=== PATIENT | female | born 1995 ===

== ENCOUNTER 2019-11-17 16:59 | Emergency (ER) | payer BC ==
--- NOTE | 2019-11-17 17:27 | UC ---
Headache HPI - HPI Summary HPI Summary: 24 yo female presents with headache. She tells me that she has a history of migraines for which she takes maxalt for acute headaches and trazodone for chronic treatment. Yesterday morning she developed a headache to the occipital/ ociput area of her head that felt the same as her usual migraines. She took her maxalt and felt moderately better, but headache never fully went away. She took ibuprofen, which helped but did not resolve headache. She went to bed last night and headache was still mildly present this morning - prompting her visit to today. She has not taken any medication for her headache today. LMP was and she takes an OBC, but has been sexually active without protection and would like a test today. She denies recent illness, neck pain, vision changes, dizziness, sinus symptoms , cough, SOB, chest pain, abdominal pain, n/v/d/c, dysuria, back pain. - History Of Current Complaint Stated Complaint: HEADACHE Time Seen by Provider: 11/17/19 17:26 Hx Obtained From: Patient Onset/Duration: Gradual Onset Initially Headache Was: Moderate Currently Pain Is: Moderate Pain Intensity: 5 Pain Scale Used: 0-10 Numeric - Allergies/Home Medications Allergies/Adverse Reactions: Allergies Allergy/AdvReac Type Severity Reaction Status Date / Time Cephalosporins Allergy Severe Hives Verified 11/17/19 18:13 Penicillins Allergy Severe facial Verified 11/17/19 18:13 swelling Home Medications: Home Medications Ethinyl Estradiol/Drospirenone [Alena 28 Tablet] 1 tab PO DAILY 11/17/19 [History Confirmed 11/17/19] FLUoxetine CAP* [Prozac CAP*] 30 mg PO DAILY 11/17/19 [History Confirmed ] Levocetirizine Dihydrochloride [Xyzal Allergy 24Hr] 5 mg PO DAILY 11/17/19 [ History Confirmed 11/17/19] Montelukast Sodium TAB* [Singulair 10 MG TAB*] 1 tab PO DAILY 11/17/19 [History Confirmed 11/17/19] traZODone TAB* [Desyrel TAB*] 25 mg PO DAILY 11/17/19 [History Confirmed ] PMH/Surg Hx/FS Hx/Imm Hx - Additional Past Medical History Additional PMH: Migraines Allergies Psychological History: Anxiety, Depression - Surgical History Surgical History: None - Family History Known Family History: Positive: None - Social History Occupation: Student Alcohol Use: Occasionally Substance Use Type: None Smoking Status (MU): Never Smoked Tobacco Review of Systems All Other Systems Reviewed And Are Negative: No Constitutional: Positive: Negative Skin: Positive: Negative Eyes: Positive: Negative ENT: Positive: Negative Respiratory: Positive: Negative Cardiovascular: Positive: Negative Gastrointestinal: Positive: Negative Genitourinary: Positive: Negative Motor: Positive: Negative Neurovascular: Positive: Negative Musculoskeletal: Positive: Negative Neurological/Mental Status: Positive: Headache Psychological: Positive: Negative Physical Exam - Summary Physical Exam Summary: GENERAL: NAD. WDWN. No pain distress. SKIN: No rashes, sores, ulcers, masses, lesions. HEENT: Head: AT/NC. Eyes: PERRLA. EOM intact. Conjunctiva clear without inflammation or discharge. Ears: Hearing grossly normal. TMs intact, no bulging, erythema, or edema. Nose: Nasal mucosa pink and moist. NTTP maxillary and frontal sinus. Throat: Posterior oropharynx without exudates, erythema, or tonsillar enlargement. Uvula midline. NECK: Supple. Nontender. FROM CHEST: CTAB. No r/r/w. No accessory muscle use. Breathing comfortably and in no distress. CV: RRR. Pulses intact. Brisk cap refill. MSK: FROM in B/L UEs and LEs with symmetric strength. NEURO: A&Ox3. Ability to follow 2-step directions and attention intact. CN: II: Peripheral wetzel intact. Vision normal. III, IV, : EOMI. No nystagmus. PERRLA. V: Sensations intact and symmetric. Opens mouth and clenches teeth. VII : No facial asymmetry. Forehead wrinkles. Grins, shuts eyes, frowns, puffs cheeks. VIII: Hearing intact to finger rub. IX, X: Swallows and coughs. Uvula midline. XI: Shrugs shoulders. Turns head against resistance. XII: No tongue deviation [id number] are intact. Gait with normal base. Romberg: maintains balance, no pronator drift. Normal speech. No facial drooping. PSYCH: Age appropriate behavior. Triage Information Reviewed: Yes Vital Signs: Vital Signs: Temp Pulse Resp BP Pulse Ox 99.0 F 93 15 97/61 99 11/17/19 17:51 11/17/19 17:51 11/17/19 17:51 11/17/19 17:51 11/17/19 17:51 Laboratory Tests 11/17/19 11/17/19 18:06 18:07 POC Urine Color Yellow POC Urine Clarity Clear POC Urine pH 6.0 POC Ur Specif Neal 1.025 POC Urine Protein Negative POC Ur Glucose (UA) Negative POC Urine Ketones Trace A POC Urine Blood Trace-intact A POC Urine Nitrite Negative POC Urine Bilirubin Negative POC Urine Urobilinogen 0.2 POC U Leukocyte Esteras Negative POC Ur Test Negative Vital Signs Reviewed: Yes Headache Course/Dx - Course Course Of Treatment: UA as above. Urine negative. In the clinic she was given 30mg toradol IM and 4mg odt zofran for her headache. -- resume tylenol this evening as directed, rest, and drink plenty of clear fluids. Advised to try excedrin migraine tomorrow if her headache persists. If headache does not continue to improve, worsens, or if she develops new symptoms to be rechecked - Differential Dx/Diagnosis Provider Diagnosis: Headache Discharge ED - Sign-Out/Discharge Documenting (check all that apply): Patient Departure All imaging exams completed and their final reports reviewed: No Studies - Discharge Plan Condition: Stable Disposition: HOME Patient Education Materials: Migraine Headache (ED) Referrals: Samantha Blancas MD [Primary Care Provider] - Additional Instructions: If you develop a fever, dizziness, worsening headache, vision changes, numbness/ weakness, shortness of breath, chest pain, new or worsening symptoms - please call your PCP or go to the ED immediately. In the future you may try some Excedrin Migraine (over the counter) for your headaches if your usual medications do not work - Billing Disposition and Condition Condition: STABLE Disposition: Home - Attestation Statements Provider Attestation: I was available for consult. This patient was seen by the ROB. The patient was not presented to, seen by, or examined by me. -Ilana
--- OUTSIDE RECORDS SUMMARY | 2019-11-17 17:29 | XMS REPORT | Continuity of Care Document ---
:1995 External Reference #:[id number] Author Name Samantha Oliver MD (transmitted by agent of provider Chioma Diaz) Address [address], [place] [address] Care Team Providers Name Role Phone Samantha Oliver MD - Family Medicine Care Team Information Director Credit Risk Problems Active Problems Provider Date Migraine with aura Onset: 10/12/2017 Seasonal allergic rhinitis Onset: 10/12/2017 Mild intermittent asthma Onset: 10/12/2017 Acute vaginitis Onset: 10/12/2017 Acne Onset: 10/12/2017 H/O: depression Onset: 10/12/2017 Community acquired pneumonia Onset: 04/11/2016 History of herpes zoster Onset: 08/03/2012 Social History Type Date Description Comments Sex Unknown Tobacco Use Start: Unknown Never Smoked Cigarettes Smoking Status Reviewed: 10/04/19 Never Smoked Cigarettes ETOH Use Drinks Alcoholic Beverages Occasionally ETOH Use Drinks 2 Alcoholic Beverages Per Week Recreational Drug Use Never Used Drugs Exercise Type/Frequency Exercises regularly Allergies, Adverse Reactions, Alerts Active Allergies Reaction Severity Comments Date Cefdinir Rash Moderate 08/03/2019 Penicillin Facial swelling Severe 08/03/2019 Medications Active Medications SIG Qnty Indications Ordering Date Provider Alprazolam 1 po qd prn 30tabs F41.8 Samantha Oliver MD 08/31/2019 0.25mg Tablets anxiety Dispers Loryna 1 by mouth Unknown 3-0.02mg Tablets every day Levocetirizine 1 every day as Unknown Dihydrochloride needed 5mg Tablets Multi Adult Gummies 2 by mouth Unknown Chewtabs every day Montelukast Sodium 1 by mouth Unknown 10mg every day Tablets Propranolol HCL 1 po prn qd 30tabs Samantha Oliver MD 10mg Tablets Proventil HFA 2 puffs every 4 Unknown 108(90Base) hours as needed mcg/Act Aerosol Rizatriptan Benzoate 1 by mouth at Unknown 5mg onset of Tablets migraine, may repeat after 2 hours max 2/day max 2 days/week Trazodone HCL 1 by mouth Unknown 50mg Tablets every day at hs prn Fluoxetine HCL (PMDD) 1 by mouth Unknown 20mg every day plus Capsules 10mg Medications Administered in Office Medication SIG Qnty Indications Ordering Provider Date Meningococcal,Unspecified Unknown 07/22/2014 Injection HPV,Unspecified Unknown 02/20/2012 Injection HPV,Unspecified Unknown 08/16/2011 Injection HPV,Unspecified Unknown 08/04/2010 Injection Meningococcal,Unspecified Unknown 03/01/2009 Injection Immunizations CPT Code Status Date Vaccine Lot # [id number] Given 05/09/2019 Influenza Virus Vaccine, Quadrivalent, Split, Im Use 6-35mo 36252 Given 01/19/2019 Tdap - Tetanus/Diptheria/Acellular Pertussis 38521 Given 04/08/2018 Influenza Virus Vaccine, Quadrivalent, Split, Preservative Free 79143 Given 06/13/2017 Influenza Virus Vaccine, Quadrivalent, Split, Im Use 6-35mo 87213 Given 04/27/2015 Flu Vaccine 88712 Given 08/01/2014 Flu Vaccine 96298 Given 05/07/2013 Flu Vaccine 21576 Given 07/01/2012 Flu Vaccine 98505 Given 05/14/2012 Flu Vaccine 65382 Given 06/14/2011 Flu Vaccine 88411 Given 06/28/2010 Flu Vaccine 72022 Given 06/12/2009 Flu Vaccine 14502 Given 04/03/2009 Flu Vaccine 25023 Given 03/05/2009 Varicella (Chicken Pox) Immunization 78220 Given 03/01/2009 Tdap - Tetanus/Diptheria/Acellular Pertussis 45541 Given 04/20/2008 Flu Vaccine 17665 Given 02/16/2003 Hepatitis A Vaccine Pediatric/Adolescent Dosage 2 Dose Schedule 46057 Given 08/23/2002 Hepatitis A Vaccine Pediatric/Adolescent Dosage 2 Dose Schedule 21908 Given 06/21/2001 DTP Vaccine 63068 Given 06/15/2001 IPV/Poliomyelitis Immunization 11176 Given 06/15/2001 Measles Mumps And Rubella MMR 70252 Given 12/07/1998 DTP Vaccine 00290 Given 09/07/1998 Hemophilus Influenza B 85042 Given 08/08/1998 DTP Vaccine 51993 Given 06/15/1998 Measles Mumps And Rubella MMR 07488 Given 06/15/1998 Varicella (Chicken Pox) Immunization 10487 Given 03/09/1998 Hep B Pediatric/Adolescent 62601 Given 1997 Hemophilus Influenza B 83645 Given 1997 DTP Vaccine 48279 Given 1997 Hemophilus Influenza B 62927 Given 1997 DTP Vaccine 46261 Given 1997 Hep B Pediatric/Adolescent 04798 Given 1997 [place] Influenza B [address]85 Given 1997 Hep B Pediatric/Adolescent Vital Signs Date Vital Result Comment 10/04/2019 10:33am Height 61.5 inches 5'1.50" Weight 111.00 lb Heart Rate 90 /min BP Systolic 90 mmHg BP Diastolic 62 mmHg Respiratory Rate 16 /min Body Temperature 97.9 F BMI (Body Mass Index) 20.6 kg/m2 09/13/2019 10:38am Height 61.5 inches 5'1.50" Weight 111.25 lb Heart Rate 69 /min BP Systolic 93 mmHg BP Diastolic 63 mmHg Body Temperature 97.8 F O2 % BldC Oximetry 97 % BMI (Body Mass Index) 20.7 kg/m2 Last Menstrual Period 2292155 Results Test Acquired Date Facility Test Result H/L Range Note Cobalamin 06/13/2019 N2N/CCD Import vitamin B12 421 pg/mL 180-914 (Vitamin B12) [Mass/volume] in Blood TSH (thyroid 06/13/2019 N2N/CCD Import TSH (thyroid 1.63 0.34-5.60 stimulating stimulating mciu/mL horm) horm) Procedures Description No Information Available Medical Devices Description No Information Available Encounters Type Date Location Provider Dx Diagnosis Office Visit 10/04/2019 [facility] Samantha Oliver MD F41.8 Other specified 10:30a [facility] anxiety disorders 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 Office Visit 09/13/2019 10:30a [facility] Samantha Oliver MD F41.8 Other specified [facility] anxiety disorders Office Visit 08/31/2019 4:00p [facility] Samantha Oliver MD F41.8 Other specified [facility] anxiety disorders 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 J45.20 Mild intermittent asthma, uncomplicated Assessments Date Code Description Provider 10/04/2019 F41.8 Mixed anxiety and depressive disorder Samantha Oliver MD 10/04/2019 F40.248 Performance anxiety Samantha Oliver MD 09/13/2019 F41.8 Mixed anxiety and depressive disorder Samantha Oliver MD 08/31/2019 F41.8 Mixed anxiety and depressive disorder Samantha Oliver MD 08/31/2019 F40.248 Performance anxiety Samantha Oliver MD 08/31/2019 J45.20 Mild intermittent asthma Samantha Oliver MD Plan of Treatment Future Appointment(s):10/24/2019 10:30 am - Samantha Oliver MD at [facility]10/04/2019 - Samantha Oliver MDF41.8 Mixed anxiety and depressive disorderComments:Feels better, less anxiety, less overwhelmed. Still with anxiety related to certain events. Working with therapist, meditating, taking meds correctly, exercising. Will refill alprazolam, she is using it as needed and appropriately.Follow up:2 months follow upF40.248 Performance anxiety Functional Status Description No Information Available Mental Status Description No Information Available Referrals Description No Information Available
--- OUTSIDE RECORDS SUMMARY | 2019-11-17 17:29 | XMS REPORT | Continuity of Care Document ---
:1995 External Reference #:[id number] Author Name Samantha Oliver MD (transmitted by agent of provider November) Address [address] , [place] [address] Care Team Providers Name Role Phone Samantha Oliver MD - Family Medicine Care Team Information Hospital Administrative Assistant Problems Active Problems Provider Date Migraine with aura Onset: 10/12/2017 Seasonal allergic rhinitis Onset: 10/12/2017 Mild intermittent asthma Onset: 10/12/2017 Acute vaginitis Onset: 10/12/2017 Acne Onset: 10/12/2017 H/O: depression Onset: 10/12/2017 Community acquired pneumonia Onset: 04/11/2016 History of herpes zoster Onset: 08/03/2012 Social History Type Date Description Comments Sex Unknown Tobacco Use Start: Unknown Never Smoked Cigarettes ETOH Use Drinks Alcoholic Beverages Occasionally ETOH Use Drinks 2 Alcoholic Beverages Per Week Recreational Drug Use Never Used Drugs Tobacco Use Start: Unknown Patient has never smoked Smoking Status Reviewed: 10/04/19 Patient has never smoked Exercise Type/Frequency Exercises regularly Allergies, Adverse Reactions, [...] CPT Code Status Date Vaccine Lot # [id number] Given 05/09/2019 Influenza Virus Vaccine, Quadrivalent, Split, Im Use 6-35mo 33820 Given 01/19/2019 Tdap - Tetanus/Diptheria/Acellular Pertussis 57728 Given 04/08/2018 Influenza Virus Vaccine, Quadrivalent, Split, Preservative Free 06715 Given 06/13/2017 Influenza Virus Vaccine, Quadrivalent, Split, Im Use 6-35mo 13506 Given 04/27/2015 Flu Vaccine 39843 Given 08/01/2014 Flu Vaccine 24467 Given 05/07/2013 Flu Vaccine 28729 Given 07/01/2012 Flu Vaccine 00863 Given 05/14/2012 Flu Vaccine 46877 Given 06/14/2011 Flu Vaccine 08512 Given 06/28/2010 Flu Vaccine 87728 Given 06/12/2009 Flu Vaccine 92255 Given 04/03/2009 Flu Vaccine 37268 Given 03/05/2009 Varicella (Chicken Pox) Immunization 90296 Given 03/01/2009 Tdap - Tetanus/Diptheria/Acellular Pertussis 56995 Given 04/20/2008 Flu Vaccine 24246 Given 02/16/2003 Hepatitis A Vaccine Pediatric/Adolescent Dosage 2 Dose Schedule 42510 Given 08/23/2002 Hepatitis A Vaccine Pediatric/Adolescent Dosage 2 Dose Schedule 07178 Given 06/21/2001 DTP Vaccine 29429 Given 06/15/2001 IPV/Poliomyelitis Immunization 18750 Given 06/15/2001 Measles Mumps And Rubella MMR 08086 Given 12/07/1998 DTP Vaccine 01734 Given 09/07/1998 Hemophilus Influenza B 41865 Given 08/08/1998 DTP Vaccine 67912 Given 06/15/1998 Measles Mumps And Rubella MMR 58478 Given 06/15/1998 Varicella (Chicken Pox) Immunization 43086 Given 03/09/1998 Hep B Pediatric/Adolescent 28934 Given 1997 Hemophil[place] Influenza B 65221 Given 1997 DTP Vaccine 13009 Given 1997 Hemophilus Influenza B 36013 Given 1997 DTP Vaccine 81992 Given 1997 Hep B Pediatric/Adolescent 24581 Given 1997 Hemophilus Influenza B 58634 Given 1997 Hep B Pediatric/Adolescent Vital Signs [...] Mass Index) 20.7 kg/m2 Last Menstrual Period [id number] Results Test Acquired Date Facility Test Result H/L Range Note Cobalamin 06/13/2019 N2N/CCD Import vitamin B12 421 pg/mL 180-914 (Vitamin B12) [Mass/volume] in Blood TSH (thyroid 06/13/2019 N2N/CCD Import TSH (thyroid 1.63 0.34-5.60 stimulating stimulating mciu/mL horm) horm) Procedures Description No Information Available Medical Devices Description No Information Available Encounters Type Date Location Provider Dx Diagnosis Office Visit 10/24/2019 [facility] Samantha Oliver MD F41.8 Other specified 10:30a [facility] anxiety disorders G43.101 Migraine with aura, not intractable, with status migrainosus N76.0 Acute vaginitis Office Visit 10/04/2019 10:30a [facility] Samantha Oliver MD F41.8 Other specified [facility] anxiety disorders 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 Office Visit 09/13/2019 10:30a [facility] Samantha Oliver MD F41.8 Other specified [facility] anxiety disorders Office Visit 08/31/2019 4:00p [facility] Samantha Oliver MD F41.8 Other specified [facility] anxiety disorders 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 J45.20 Mild intermittent asthma, uncomplicated Assessments Date Code Description Provider 10/24/2019 F41.8 Mixed anxiety and depressive disorder Samantha Oliver MD 10/24/2019 G43.101 Migraine with aura Samantha Oliver MD 10/24/2019 N76.0 Acute vaginitis Samantha Oliver MD 10/04/2019 F41.8 Mixed anxiety and depressive disorder Samantha Oliver MD 10/04/2019 F40.248 Performance anxiety Samantha Oliver MD 09/13/2019 F41.8 Mixed anxiety and depressive disorder Samantha Oliver MD 08/31/2019 F41.8 Mixed anxiety and depressive disorder Samantha Oliver MD 08/31/2019 F40.248 Performance anxiety Samantha Oliver MD 08/31/2019 J45.20 Mild intermittent asthma Samantha Oliver MD Plan of Treatment 10/24/2019 - Samantha Oliver MDF41.8 Mixed anxiety and depressive disorderComments :Mood is stable. We will continue her current medications.Follow up:1 vuiewU17.101 Migraine with auraComments:had three migraines with aura in the last 2 weeks of unclear cause. It is better with rizatriptan and alprazolam and she may continue that. She will continue to keep a headache diary. She will add magnesium glycinate 400 mg at bedtime. If needed she will also add riboflavin 400 mg daily as well.N76.0 Acute vaginitisComments:She has a new sexual partner and symptoms of change in vaginal odor. She will schedule an appointment in the next couple of weeks.Follow up:1 week needs pelvic exam and testing Functional Status Description No Information Available Mental Status Description No Information Available Referrals Description No Information Available
--- OUTSIDE RECORDS SUMMARY | 2019-11-17 17:29 | XMS REPORT | Continuity of Care Document ---
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 Problems Active Problems Provider Date Migraine with [...] has never smoked Exercise Type/Frequency Exercises regularly Seat Belt/Car Seat always uses seat belt Guns in Home No Allergies, Adverse Reactions, Alerts Active Allergies Reaction Severity Comments Date Cefdinir Rash Moderate 08/03/2019 Penicillin Facial swelling Severe 08/03/2019 Medications Active Medications SIG Qnty Indications Ordering Date Provider Diflucan 1 by mouth x 1, 2tabs Samantha Oliver, 11/03/2019 150mg Tablets repeat in 4 days as needed Metronidazole insert one 70gm Samantha Olvier, 11/03/2019 0.75% Gel applicator full MD pv daily at bedtime x5 days Alprazolam 1 po qd prn 30tabs F41.8 Samantha Oliver, 08/31/2019 0.25mg Tablets anxiety MD Dispers Loryna 1 by mouth every Unknown 3-0.02mg Tablets day Levocetirizine 1 every day as Unknown Dihydrochloride needed 5mg Tablets Multi Adult Gummies 2 by mouth every Unknown day Chewtabs Montelukast Sodium 1 by mouth every Unknown 10mg day Tablets Propranolol HCL 1 po prn qd 30tabs Samantha Oliver, 10mg MD Tablets Proventil HFA 2 puffs every 4 Unknown 108(90Base) hours as needed mcg/Act Aerosol Rizatriptan Benzoate 1 by mouth at Unknown 5mg onset of Tablets migraine, may repeat after 2 hours max 2/day max 2 days/week Trazodone HCL 1 by mouth every Unknown 50mg Tablets day at hs prn Fluoxetine HCL (PMDD) 1 by mouth every Unknown 20mg day plus 10mg Capsules Medications Administered in Office Medication SIG Qnty Indications Ordering Provider Date Meningococcal,Unspecified Unknown 07/22/2014 Injection HPV,Unspecified Unknown 02/20/2012 Injection HPV,Unspecified Unknown 08/16/2011 Injection HPV,Unspecified Unknown 08/04/2010 Injection Meningococcal,Unspecified Unknown 03/01/2009 Injection Immunizations CPT Code Status Date Vaccine Lot # [id number] Given 05/09/2019 Influenza Virus Vaccine, Quadrivalent, Split, Im Use 6-35mo 68351 Given 01/19/2019 Tdap - Tetanus/Diptheria/Acellular Pertussis 57202 Given 04/08/2018 Influenza Virus Vaccine, Quadrivalent, Split, Preservative Free 03631 Given 06/13/2017 Influenza Virus Vaccine, Quadrivalent, Split, Im Use 6-35mo 97022 Given 04/27/2015 Flu Vaccine 02288 Given 08/01/2014 Flu Vaccine 81883 Given 05/07/2013 Flu Vaccine 66219 Given 07/01/2012 Flu Vaccine 48699 Given 05/14/2012 Flu Vaccine 69041 Given 06/14/2011 Flu Vaccine 46367 Given 06/28/2010 Flu Vaccine 76840 Given 06/12/2009 Flu Vaccine 56995 Given 04/03/2009 Flu Vaccine 93200 Given 03/05/2009 Varicella (Chicken Pox) Immunization 18149 Given 03/01/2009 Tdap - Tetanus/Diptheria/Acellular Pertussis 13716 Given 04/20/2008 Flu Vaccine 55950 Given 02/16/2003 Hepatitis A Vaccine Pediatric/Adolescent Dosage 2 Dose Schedule 79081 Given 08/23/2002 Hepatitis A Vaccine Pediatric/Adolescent Dosage 2 Dose Schedule 58706 Given 06/21/2001 DTP Vaccine 89357 Given 06/15/2001 IPV/Poliomyelitis Immunization 07716 Given 06/15/2001 Measles Mumps And Rubella MMR 81775 Given 12/07/1998 DTP Vaccine 96721 Given 09/07/1998 Hemophilus Influenza B 83628 Given 08/08/1998 DTP Vaccine 66465 Given 06/15/1998 Measles Mumps And Rubella MMR 88474 Given 06/15/1998 Varicella (Chicken Pox) Immunization 10403 Given 03/09/1998 Hep B Pediatric/Adolescent 12138 Given 1997 [place] B [address] Given 1997 DTP Vaccine 25277 Given 1997 Hemophilus Influenza B 40384 Given 1997 DTP Vaccine 91759 Given 1997 Hep B Pediatric/Adolescent 81547 Given 1997 Hemophilus Influenza B 80090 Given 1997 Hep B Pediatric/Adolescent Vital Signs [...] Mass Index) 20.7 kg/m2 Last Menstrual Period [id number] Results Test Acquired Date Facility Test Result H/L Range Note Laboratory test 11/01/2019 [facility] Gardnerella/Yea SEE RESULT [address]: [place] [address] [phone] GC/Chlamydia 11/01/2019 [facility] GCC (SEE NOTE) 2 Amplified Rna [address] [place] [address] [phone] Chlamydia trachomatis [place] Negative Negative Neisseria gonorrhoeae (GC) [place]axa Negative Negative Cytology 11/01/2019 [facility] Cytology SEE RESULT BELOW [address] [place] [address] [phone] PDFReport SEE IMAGE HIV 1&2 p24 11/01/2019 [facility] HIV 4th Nonreactive Nonreactive Screen [address] [place] [address] [phone] Cobalamin 06/13/2019 N2N/CCD Import vitamin B12 421 pg/mL 180-914 (Vitamin B12) [Mass/volume] in Blood TSH (thyroid 06/13/2019 N2N/CCD Import TSH (thyroid 1.63 mciu/mL 0.34- 5.60 stimulating stimulating horm) horm) 1 SEE RESULT BELOW Name: LORYTAIWO : [address]: Samantha Oliver MD Acct: [id number] Unit: [id number] AGE: 24 Location: [facility] Re11/01/19 SEX: F Status: REG REF SPEC: [id number] QUENTIN: 11/01/19-[address]: Samantha Oliver MD REQ: [id number] RECD: 11/01/19 STATUS: COMP _ SOURCE: VAGINAL SPDESC: ORDERED: Katie,Yeast DNA COMMENTS: [id number] Would you like to order Trichomonas Vaginalis testing? Yes Procedure Result Reported Site Gardnerella/Yeast: Vaginal DNA Final 11/02/19- 1147 ML Organism 1 POSITIVE GARDNERELLA Organism 2 POSITIVE LISBETH The presence of G. vaginalis, although suggestive, is not diagnostic for bacterial vaginosis. Results should be interpreted in conjuction with other clinical and laboratory data available. Women with vaginal discharge should be evaluated for risk factors of cervicitis and pelvic inflammatory disease, toxic shock syndrome (S.aureus), and if present, evaluated for organisms not included in this assay such as N. gonorrhoeae, C. trachomatis, Mobiluncus, Mycoplasma and/or Prevotella. Mixed infections may occur. The performance of this test on patient specimens collected during or immediately after antimicrobial therapy is unknown. The presence or absence of Lisbeth species, or G. vaginalis cannot be used as a test for therapeutic success or failure. * [facility] - Main Lab . END OF REPORT DEPARTMENT OF PATHOLOGY, [address] [place] [address] Andres Avalos M.D. Director [facility] # [id number] 2 As with all diagnostic procedures, the laboratory results obtained should be used in conjunction with other clinical information available to the physician, including confirmation by another method, as applicable. 3 SEE RESULT BELOW Name: TAIWO HENLEY : [address]: Samantha Oliver MD Acct: [id number] Unit: [id number] AGE: 24 Location: [facility] Re11/01/19 SEX: F Status: REG REF SPEC: [id number] QUENTIN: 11/01/19-[address] [facility] [address]: Samantha Oliver MD REQ: [id number] RECD: 11/01/19-1920 STATUS: SOUT _ ORDERED: TP IMAGE ANALYS COMMENTS: [id number] FINAL DIAGNOSIS Negative for Intraepithelial lesion or Malignancy Fungal organisms morphologically consistent with Lisbeth species SPECIMEN(S) RECEIVED A. Ectocervical/Endocervical CYTOLOGY ADEQUACY Specimen Adequacy: Satisfactory of evaluation Transformation zone component identified CYTOLOGY PATIENT INFORMATION Patient Information: HPV: Thin Layer Pap Test w/reflex to high risk HPV RNA testing when ASCUS Actual Specimen Date: 11/01/19 LMP If Unknown: Last Menstrual Period Not Given. Other Pertinent History: No History Given Signed by and Reported on: JUAN Osorio (ASCP) [id number] This Pap test was evaluated with the assistance of the Xelerated Test Imaging System. Due to cytologic findings at the manager of corporate microscope, comprehensive manual rescreening by a Floor Grinder may be required. The Pap Smear is a screening test designed to aid in the detection of premalignant and malignant conditions of the uterine cervix. It is not a diagnostic procedure and should not be used as the sole means of detecting cervical cancer. Both false- positive and false- negative reports do occur. Depending on your risk status, a Pap smear should be obtained and evaluated every 1-3 years. END OF REPORT DEPARTMENT OF PATHOLOGY, [address] [place] [address] Andres Avalos M.D. Director [facility] # [id number] Procedures Description No Information Available Medical Devices Description No Information Available Encounters Type Date Location Provider Dx Diagnosis Office Visit 11/01/2019 [facility] Samantha Oliver MD F41.8 Other specified 11:30a [facility] anxiety disorders N76.0 Acute vaginitis G43.101 Migraine with aura, not intractable, with status migrainosus Z12.4 Encounter for screening for malignant neoplasm of cervix Z11.3 Encntr screen for infections w sexl mode of transmiss Office Visit 10/24/2019 10:30a [facility] Samantha Oliver MD F41.8 Other specified [facility] anxiety disorders G43.101 Migraine with aura, not intractable, with status migrainosus N76.0 Acute vaginitis Office Visit 10/04/2019 10:30a [facility] Samantha Oliver MD F41.8 Other specified [facility] anxiety disorders 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 Office Visit 09/13/2019 10:30a [facility] Samantha Oliver MD F41.8 Other specified [facility] anxiety disorders Office Visit 08/31/2019 4:00p [facility] Samantha Oliver MD F41.8 Other specified [facility] anxiety disorders 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 J45.20 Mild intermittent asthma, uncomplicated Assessments Date Code Description Provider 11/01/2019 F41.8 Mixed anxiety and depressive disorder Samantha Oliver MD 11/01/2019 N76.0 Acute vaginitis Samantha Oliver MD 11/01/2019 G43.101 Migraine with aura Samantha Oliver MD 11/01/2019 Z12.4 Screening for malignant neoplasm of cervix Samantha Oliver MD 11/01/2019 Z11.3 Venereal disease screening Samantha Oliver MD 10/24/2019 F41.8 Mixed anxiety and depressive disorder [...] asthma Samantha Oliver MD Plan of Treatment 11/01/2019 - Samantha Oliver MDF41.8 Mixed anxiety and depressive disorderComments :pt doing well with current medication and continued therapyFollow up:1 month skgygtcM02.0 Acute vaginitisComments:exam shows yellow brown discharge, will check labs then f/u, she will continue to monitor her discharge and vaginal bleeding, I think the post coital bleeding is possibly from ectropion or possibly an intracervical polyp or cyst, if bleeding continues will repeat exam and consider TV USG43.101 Migraine with auraComments:doing wellZ12.4 Screening for malignant neoplasm of pjivtuI38.3 Venereal disease screening Functional Status Description No Information Available Mental Status Description No Information Available Referrals Description No Information Available
--- OUTSIDE RECORDS SUMMARY | 2019-11-17 17:29 | XMS REPORT | Continuity of Care Document ---
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 Problems Active Problems Provider Date Migraine with [...] Date Provider Alprazolam 1 po qd prn 7tabs F41.8 Samantha Oliver MD 08/31/2019 0.25mg Tablets [...] CPT Code Status Date Vaccine Lot # [id number] Given 05/09/2019 Influenza Virus Vaccine, Quadrivalent, Split, Im Use 6-35mo 14335 Given 01/19/2019 Tdap - Tetanus/Diptheria/Acellular Pertussis 18113 Given 04/08/2018 Influenza Virus Vaccine, Quadrivalent, Split, Preservative Free 06823 Given 06/13/2017 Influenza Virus Vaccine, Quadrivalent, Split, Im Use 6-35mo 13592 Given 04/27/2015 Flu Vaccine 45787 Given 08/01/2014 Flu Vaccine 00952 Given 05/07/2013 Flu Vaccine 82671 Given 07/01/2012 Flu Vaccine 62683 Given 05/14/2012 Flu Vaccine 29597 Given 06/14/2011 Flu Vaccine 89831 Given 06/28/2010 Flu Vaccine 84994 Given 06/12/2009 Flu Vaccine 30757 Given 04/03/2009 Flu Vaccine 14359 Given 03/05/2009 Varicella (Chicken Pox) Immunization 01153 Given 03/01/2009 Tdap - Tetanus/Diptheria/Acellular Pertussis 13216 Given 04/20/2008 Flu Vaccine 59465 Given 02/16/2003 Hepatitis A Vaccine Pediatric/Adolescent Dosage 2 Dose Schedule 00718 Given 08/23/2002 Hepatitis A Vaccine Pediatric/Adolescent Dosage 2 Dose Schedule 13823 Given 06/21/2001 DTP Vaccine 94871 Given 06/15/2001 IPV/Poliomyelitis Immunization 38685 Given 06/15/2001 Measles Mumps And Rubella MMR 88337 Given 12/07/1998 DTP Vaccine Given 09/07/1998 [place] B [address] Given 08/08/1998 DTP Vaccine 83614 Given 06/15/1998 Measles Mumps And Rubella MMR 45899 Given 06/15/1998 Varicella (Chicken Pox) Immunization 38332 Given 03/09/1998 Hep B Pediatric/Adolescent 70612 Given 1997 [place] B 46301 Given 1997 DTP Vaccine 39374 Given 1997 Hemophilus Influenza B 33946 Given 1997 DTP Vaccine 52535 Given 1997 Hep B Pediatric/Adolescent 36758 Given 1997 Hemophil[place] Influenza B 28684 Given 1997 Hep B Pediatric/Adolescent Vital Signs [...] Mass Index) 20.7 kg/m2 Last Menstrual Period 9993455 Results Test Acquired Date Facility Test Result H/L Range Note Cobalamin 06/13/2019 N2N/CCD Import vitamin B12 421 pg/mL 180-914 (Vitamin B12) [Mass/volume] in Blood TSH (thyroid 06/13/2019 N2N/CCD Import TSH (thyroid 1.63 0.34-5.60 stimulating stimulating mciu/mL horm) horm) Procedures Description No Information Available Medical Devices Description No Information Available Encounters Type Date Location Provider Dx Diagnosis Office Visit 09/13/2019 [facility] Samantha Oliver MD F41.8 Other specified 10:30a [facility] anxiety disorders Office Visit 08/31/2019 [facility] Samantha Oliver MD F41.8 Other specified 4:00p [facility] anxiety disorders F40.248 Other situational type [...] asthma Samantha Oliver MD Plan of Treatment 10/04/2019 - Samantha Oliver MDF41.8 Mixed anxiety and depressive disorderComments :improving, continue current meds, I rec. exercise outdoors, discussed CBT, continue therapy, visualize a barrier between yourself and negativity to sheild yourself in stressful situations, I rec. Vidhi Caraballo audiobook, f/u in 3 weeks , sooner prn25 min face time more than 50% counselingFollow up:2 months follow upF40.248 Performance anxiety Functional Status Description No Information Available Mental Status Description No Information Available Referrals Description No Information Available
[2019-11-17] MEDS ORDERED: Ondansetron ODT TAB* 4 MG SL ONE (18:10)
[2019-11-17] MEDS ORDERED: Ketorolac INJ* 30 MG/ML 1 ML VIAL IM ONE (18:10)
[2019-11-17 18:14] VITALS: BP 97/61
== END 2019-11-17 18:40 | disposition home or self-care (01) ==
LOC: UCEAST 16:59
DX: R51 Headache (principal); Z32.02 Encounter for pregnancy test, result negative; F41.9 Anxiety disorder, unspecified; F32.9 Major depressive disorder, single episode, unspecified; Z79.899 Other long term (current) drug therapy; Z88.1 Allergy status to other antibiotic agents; Z88.0 Allergy status to penicillin
CPT/HCPCS: 81003; 84702; 96372; 99212; A9270-GY; G0463; J1885

== ENCOUNTER 2019-11-29 19:34 | Emergency (ER) | payer BC, OTHER ==
[2019-11-29] MEDS ORDERED: NS 0.9% 1000 ml BAG 1,000 ML IV ONE (20:30)
[2019-11-29 20:57] LABS: ABS Eosinophils 0.1 10^3/ul (0-0.6); ABS Lymphocytes 1.9 10^3/ul (1.0-4.8); Eosinophil % 0.4 %; Hematocrit 39 % (35-47); Hemoglobin 13.2 g/dL (12.0-16.0); Lymphocyte % 16.7 %; Mean Corpuscular HGB Conc 34 g/dL (31-36); Mean Corpuscular Hemoglobin 32 pg (27-31); Mean Corpuscular Volume 92 fL (80-97); Mean Platelet Volume 7.7 fL (7.4-10.4); Platelet Count 275 10^3/uL (150-450); Red Blood Count 4.19 10^6 /uL (3.70-4.87); Red Cell Distribution Width 13 % (10-15); White Blood Count 11.5 10^3/uL (3.5-10.8)
[2019-11-29] MEDS ORDERED: Ondansetron 4 mg VIAL 2 MG/ML 2 ml VIAL IV SCH (21:00)
[2019-11-29 21:05] LABS: Activated Partial Thrombo Time 31.9 seconds (26.0-38.0); INR 1.01 (0.82-1.09)
[2019-11-29 21:13] LABS: ALT 27 U/L (7-52); AST 19 U/L (13-39); Albumin 4.3 g/dL (3.2-5.2); Albumin/Globulin Ratio 1.3 (1-3); Alkaline Phosphatase 40 U/L (34-104); Anion Gap 10 mmol/L (2-11); BUN/Creatinine Ratio 17.6 (8-20); Blood Urea Nitrogen 12 mg/dL (6-24); C Reactive Protein 26.41 mg/L (<8.01); CO2 Carbon Dioxide 21 mmol/L (22-32); Calcium 9.2 mg/dL (8.6-10.3); Chloride 103 mmol/L (101-111); EGFR African American 130.9 (>60); EGFR Non-African American 108.2 (>60); Globulin 3.4 g/dL (2-4); Glucose 92 mg/dL (70-100); Potassium 3.8 mmol/L (3.5-5.0); Sodium 134 mmol/L (135-145); Total Protein 7.7 g/dL (6.4-8.9)
[2019-11-29 21:20] LABS: HCG Pregnancy < 0.60 mIU/mL
[2019-11-29 22:04] LABS: Urine Appearance Cloudy; Urine Bilirubin Negative (Negative); Urine Blood 1+ (Negative); Urine Color Yellow; Urine Glucose Negative (Negative); Urine Ketones 1+ (Negative); Urine Nitrite Negative (Negative); Urine Protein Negative (Negative); Urine Specific Gravity 1.024 (1.010-1.030); Urine Urobilinogen Negative (Negative)
[2019-11-29 22:08] LABS: Urine Bacteria Absent (Absent); Urine Red Blood Cell 2+(6-10/hpf) (Absent); Urine Squamous Epithelial Cell Present (Absent); Urine White Blood Cell 1+(6-10/hpf) (Absent)
[2019-11-29 22:42] VITALS: BP 119/75
== END 2019-11-29 22:40 | disposition home or self-care (01) ==
LOC: ED 19:34